=== PATIENT | female | born 1970 | race Caucasian/White ===

== ENCOUNTER → 2020-12-05 | Outpatient (CLI) | payer OTHER ==
[~2020-12-05] MED LIST: BASAGLAR K100 UNIT/1 SC; CLINDAMYCIN HC300 MG PO; DIFLUCAN150 MG PO; DOXYCYCLINE HY100 MG PO; FLAGYL500 MG PO; GLUCOPHAGE 500500 MG GT; INSULIN LI100 UNIT/2 SQ; LEVAQUIN500 MG PO; NORCO 5-325 TA1 EACH PO
== END ==
LOC: CT 11:30
DX: I87.1 Compression of vein (principal); K76.0 Fatty (change of) liver, not elsewhere classified; K80.20 Calculus of gallbladder without cholecystitis without obstruction
CPT/HCPCS: 36415; 82565; 84520; Q9967

== ENCOUNTER → 2021-02-07 | Outpatient (CLI) | payer OTHER | LOC: NM 08:00 | DX: K80.80 Other cholelithiasis without obstruction (principal); K76.0 Fatty (change of) liver, not elsewhere classified; I34.0 Nonrheumatic mitral (valve) insufficiency | CPT/HCPCS: ECHO; 78226; 93306; A9537 ==